=== PATIENT | female | born 1995 | race Caucasian/White ===

== ENCOUNTER 2023-11-06 19:03 | Emergency (ER) | payer OTHER, SELFPAY ==
--- NOTE | 2023-11-06 19:15 | ED_ITS ---
HPI - General Adult General Chief complaint: Skin/Abscess/Foreign Body Stated complaint: body rash fever Time Seen by Provider: 11/06/23 22:48 Source: patient Mode of arrival: ambulatory Limitations: no limitations History of Present Illness ED Provider: norah MILLER narrative: Patient no history of allergic reaction woke up with rash all over with hives no new exposure no new medications no new food took Benadryl prior to arrival still itching spreading to the face in the neck no shortness a breath no tightness on the throat feel tingling in the lips and the tongue Related Data Previous Rx's ?Medication ?Instructions ?Recorded diphenhydramine HCl 25 mg capsule 50 mg (2 x 25 mg) PO TID PRN 11/07/23 (Benadryl) allergic reaction #30 caps Allergies Allergy/AdvReac Type Severity Reaction Status Date / Time Penicillins Allergy Unknown Verified 11/06/23 19:19 Sulfa (Sulfonamide Allergy Unknown Verified 11/06/23 19:19 Antibiotics) Review of Systems 2 Review of Systems: Yes all other systems are reviewed and are negative PMFSH Social History Social History Advance Directives: No Advance Directives Information Provided: No Do you have a plan to hurt others: No Plan Physical Exam ED Vital Signs: BMI result Body Mass Index 45.2 Appearance: Alert. Oriented X3. No acute distress. Eyes: No pallor or icterus ENT: Pharynx normal. Oral Mucosa moist Neck: Normal inspection. Neck supple. CVS: Normal heart rate and rhythm. Pulses normal. Respiratory: No respiratory distress. Equal air entry bilateral, no wheezing/rales/rhonchi Abdomen: Soft and nontender. Bowel sounds are present, Skin: Skin warm and dry. Hives all over the body Extremities: No lower extremity edema. No calf tenderness Neuro: Oriented X 3. No motor deficit. Course Course Course Narrative: RME performed by Marisol Smalls PA-C. Patient is a 28 year old assigned female at presenting to the emergency department with a rash. Patient states that she woke up with a rash everywhere and it is itchy. Detailed physical exam and review of systems are deferred to the cleaning and maintenance worker. Labs ordered. Patient placed back in the waiting room pending room availability and results. Medications Administered Discontinued Medications Generic Name Dose Route Start Last Admin Trade Name Arcadio PRN Reason Stop Dose Admin Dexamethasone 10 mg 11/06/23 23:11 11/06/23 23:19 Dexamethasone 2 Mg Tablet PO 11/06/23 23:12 10 mg ONCE ONE Administration Diphenhydramine HCl 50 mg 11/06/23 23:11 11/06/23 23:20 Diphenhydramine Hcl 25 Mg Capsule PO 11/06/23 23:12 50 mg ONCE ONE Administration Epinephrine 0.3 mg 11/06/23 23:11 11/06/23 23:16 Epinephrine 1 Mg/Ml Vial IM 11/06/23 23:12 0.3 mg STAT STA Administration Famotidine 20 mg 11/06/23 23:11 11/06/23 23:55 Famotidine 20 Mg Tablet PO 11/06/23 23:12 20 mg ONCE ONE Administration Medical Decision Making Medical Decision Making [facility] Narrative: Patient with diffuse hives responded to epinephrine and Decadron discharge patient home etiology not very clear Lab Data 11/06/23 19:33 11/06/23 19:33 Labs: Lab Results 11/06/23 Range/Units 19:33 WBC 11.1 H (4.8-10.8) X10*3/uL RBC 5.17 (4.20-5.50) X10*6/uL Hgb 15.0 (12.0-16.0) g/dl Hct 43.6 (37.0-47.0) % MCV 84.3 (80.0-98.0) fL MCH 29.0 (27.0-33.0) pg MCHC 34.4 (31.0-35.0) g/dl RDW 13.7 (11.0-16.0) % Plt Count 281 (160-400) X10*3/uL MPV 9.8 (9.4-12.3) fL Immature Gran % (Auto) 1.3 H (0.0-0.4) % Neut % (Auto) 62.0 (45-73) % Lymph % (Auto) 27.1 (20-40) % [place] % (Auto) 6.4 (2-11) % Eos % (Auto) 2.7 (0-4) % Baso % (Auto) 0.5 (0-2) % Lymph # (Auto) 3.0 (1.2-4.9) X10*3/uL [place] # (Auto) 0.7 (0.1-1.2) X10*3/uL Eos # (Auto) 0.3 (0.0-0.4) X10*3/uL Baso # (Auto) 0.1 (0.0-0.2) X10*3/uL Abs Immat Gran (auto) 0.14 H (0.00-0.03) X10*3/uL Absolute Neuts (auto) 6.9 (2.0-8.3) x10*3/uL Absolute Nucleated RBC 0.000 (0.0-0.012) X10*3/uL Nucleated RBC % (auto) 0.0 (0.0-0.2) /100WBC ESR 17 (0-20) MM/HR Sodium 143 (135-145) mmol/L Potassium 4.0 (3.3-5.1) mmol/L Chloride 104 (96-108) mmol/L Carbon Dioxide 29 (22-29) mmol/L Anion Gap 14 (12-20) BUN 12 (9-16) mg/dL Creatinine 0.75 (0.5-1.4) mg/dL Estim Creat Clear Calc 123.3 Estimated GFR > 60 Random Glucose 153 H (60-115) mg/dL Calcium 9.8 (8.4-10.2) mg/dL Total Bilirubin 0.3 (0.0-1.0) mg/dL AST 19 (5-31) U/L ALT 26 (0-31) U/L Alkaline Phosphatase 108 (39-117) U/L C-Reactive Protein 2.66 H (< or = 0.50) mg/dL Total Protein 7.4 (6.5-8.0) g/dL Albumin 4.5 (3.5-5.0) g/dL Beta HCG, Quant < 2 mIU/mL Hold Red Top See Note Discharge Plan Discharge Clinical Impression: Urticaria Patient Disposition: Home, Self-Care Instructions: Urticaria (ED) Additional Instructions: Cause of your rash is not clear Take Benadryl 50 mg every 6 hours as needed for the rash Follow with your PCP for further evaluation including allergy testing once better Prescriptions: New diphenhydramine HCl [Benadryl] 25 mg capsule 50 mg PO TID PRN (Reason: allergic reaction) Qty: 30 0RF Interventions: ED Discharge Assessment Last Done: 11/07/23 00:24 Discharge Date/Time: 11/07/23 00:24 Print Language: Romansh
[2023-11-06 19:16] VITALS: BP 148/89; PULSE 102; RESP 18; TEMP 36.9; O2SAT 98; BMI 45.2
[2023-11-06 19:37] LABS: MANUAL DIFF FLAG NO
[2023-11-06 19:45] LABS: Basophils Absolute Auto 0.1 X10*3/uL (0.0-0.2); Basophils Percent Auto 0.5 % (0-2); Eosinophils Absolute Auto 0.3 X10*3/uL (0.0-0.4); Eosinophils Percent Auto 2.7 % (0-4); Hematocrit 43.6 % (37.0-47.0); Imm Gran Abs Auto 0.14 X10*3/uL (0.00-0.03); Imm Gran Pct Auto 1.3 % (0.0-0.4); Lymphocytes Percent Auto 27.1 % (20-40); Mean Corpuscular HGB Conc 34.4 g/dl (31.0-35.0); Mean Corpuscular Volume 84.3 fL (80.0-98.0); Mean Platelet Volume 9.8 fL (9.4-12.3); Monocytes Absolute Auto 0.7 X10*3/uL (0.1-1.2); Monocytes Percent Auto 6.4 % (2-11); Neutrophils Absolute Auto 6.9 x10*3/uL (2.0-8.3); Platelet Count 281 X10*3/uL (160-400); Red Blood Count 5.17 X10*6/uL (4.20-5.50); Red Cell Distribution Width 13.7 % (11.0-16.0); White Blood Count 11.1 X10*3/uL (4.8-10.8)
[2023-11-06 20:02] LABS: Alanine Aminotransferase 26 U/L (0-31); Albumin Level 4.5 g/dL (3.5-5.0); Alkaline Phosphatase 108 U/L (39-117); Anion Gap 14 (12-20); Aspartate Amino Transferase 19 U/L (5-31); Bilirubin Total 0.3 mg/dL (0.0-1.0); Blood Urea Nitrogen 12 mg/dL (9-16); C Reactive Protein 2.66 mg/dL (< or = 0.50); Calcium 9.8 mg/dL (8.4-10.2); Carbon Dioxide 29 mmol/L (22-29); Chloride 104 mmol/L (96-108); Creatinine Clr Calc Pharmacy 123.3; Estimated Glomerular Filt Rate > 60; Glucose Random 153 mg/dL (60-115); Sodium 143 mmol/L (135-145); Total Protein 7.4 g/dL (6.5-8.0)
[2023-11-06 20:03] LABS: HCG Quantitative < 2 mIU/mL
[2023-11-06 20:28] LABS: Erythrocyte Sedimentation Rate 17 MM/HR (0-20)
[2023-11-06 22:17] VITALS: BP 135/74; PULSE 108; RESP 20; TEMP 36.7; O2SAT 98
[2023-11-06 23:16] VITALS: BP 154/115; PULSE 123
[2023-11-06] MEDS: EPINEPHrine 1 MG/ML VIAL 0.3 MG IM (23:16)
[2023-11-06] MEDS: dexAMETHasone 2 MG TABLET 10 MG PO (23:19)
[2023-11-06] MEDS: diphenhydrAMINE HCL 25 MG CAPSULE 50 MG PO (23:20)
[2023-11-06 23:41] VITALS: BP 139/87; PULSE 111; RESP 19; TEMP 36.9; O2SAT 98
[2023-11-06] MEDS: Famotidine 20 MG TABLET PO (23:55)
[2023-11-07 00:24] VITALS: BP 139/87; PULSE 111; RESP 19; TEMP 36.9; O2SAT 98
== END 2023-11-07 00:24 | disposition home or self-care (01) ==
PROVIDERS: Physician Assistant Medical; Emergency Provider Internal Medicine
DX: L50.0 Allergic urticaria (principal); Z79.899 Other long term (current) drug therapy
CPT/HCPCS: 36415; 80053; 84702; 85025; 85652; 86140; 96372; 99283; 99284; J0171; J8540